=== PATIENT | female | born 1940 | race Caucasian/White ===

== ENCOUNTER 2020-12-10 19:58 | Emergency (ER) | payer MEDICARE ==
--- NOTE | 2020-12-10 20:10 | EDM.PDOC ---
<Abisai Cortez - Last Filed: 12/10/20 23:08> ED HPI GENERAL MEDICAL PROBLEM - General Chief Complaint: Lower Extremity Injury/Pain Stated Complaint: FELL Time Seen by Provider: 12/10/20 20:07 - History of Present Illness INITIAL COMMENTS - FREE TEXT/NARRATIVE: 11:09 PM: Signout received at 10 PM. Patient with a fracture of the right femoral neck. Patient reports that she was on the train throughout the course of the day with a fracture and pain. I have discussed with the patient the results and she is aware of the fracture. We have attempted to call multiple hospitals here in the [place] area and have been unsuccessful in obtaining a facility that will accept her secondary to the lack of bed availability secondary to the Covid pandemic. I have contacted [facility], [facility], [facility], [facility], [facility], [facility], [facility], and no hospitals have any availability to accept this patient. I have discussed these results with the patient and have recommended observation in the ED for pain management and nonweightbearing of her right hip until the morning so that we can contact hospitals again for transfer after discharge as of occurred. Patient is adamant about signing out AGAINST MEDICAL ADVICE. Patient does not wish to stay in the ED any further given her concern regarding exposure to Covid while in the emergency department as well as concerns regarding intoxicated patients who are here in the ED who has been cursing and increasing her anxiety and stress level. I have offered to place her in a room by herself however the patient is still adamant about wanting to be discharged. She reports that she has an appointment tomorrow at her orthopedic doctors office in [place] and she wants to be discharged from here so that she can have the procedure done in [place]. I have contacted the [facility] to see if they will accept the patient however they report that they do not have any orthopedic physician on- call and therefore will not be able to accept her in transfer. I have discussed with the patient and her granddaughter the risks of weightbearing and signing out AGAINST MEDICAL ADVICE at and at this time they have been able to verbalize their understanding of worsening fracture and increased morbidity if any weightbearing. Also concerned about potential fall when trying to ambulate at home. They both exhibit the capacity for medical decision making as well as competency to make decisions and at this time they both want to sign out AGAINST MEDICAL ADVICE despite the risks. They were able to verbalize back to me all risks and concerns that I have. Given that the patient has the capacity for medical decision-making and is competent to make her own medical decisions, I will respect her autonomy as a patient and allow her to sign out AGAINST MEDICAL ADVICE. Patient will be able to return to the ED at any time if she should change her mind or have difficulty with obtaining healthcare. Patient will be given a dose of Ultram and acetaminophen here in the ED and I will supply her with a prescription for Ultram to take for pain management until she is able to see her orthopedic doctor. - Related Data Allergies Allergy/AdvReac Type Severity Reaction Status Date / Time cat dander Allergy Rash Verified 12/11/20 16:42 MDT dog dander Allergy Other Verified 12/11/20 16:42 MDT glucosamine Allergy Hives Verified 12/11/20 16:42 MDT tetracycline Allergy Hives Verified 12/11/20 16:42 MDT milk AdvReac Abdominal Verified 12/11/20 16:42 MDT Pain Home Meds: Home Meds Albuterol Sulfate [Proventil Hfa] 2 puff INH Q4H PRN 04/08/16 [History] Ascorbic Acid [Vitamin C] 500 mg PO DAILY 04/08/16 [History] Clobetasol [Clobetasol 0.05%] 1 applic TOP BID PRN 04/08/16 [History] Cranberry 500 mg PO BID 04/08/16 [History] Cyanocobalamin (Vitamin B-12) [B-12] 500 mg PO BID 04/08/16 [History] Cyclobenzaprine HCl 10 mg PO TID PRN 04/08/16 [History] Flaxseed Oil [Flaxseed] 1,000 mg PO DAILY 04/08/16 [History] Lysine 500 mg PO DAILY PRN 04/08/16 [History] Metoprolol Succinate 50 mg PO BEDTIME 04/08/16 [History] Montelukast [Singulair] 10 mg PO BEDTIME 04/08/16 [History] Multivitamin [Multi-Vitamin Daily] 1 tab PO DAILY 04/08/16 [History] [place]-3 Fatty Acids [Fish Oil] 1,000 mg PO 12 04/08/16 [History] Potassium 99 mg PO BID 04/08/16 [History] Simvastatin [Zocor] 20 mg PO BEDTIME 04/08/16 [History] Ubidecarenone [Coq-10] 1 tab PO 12 04/09/16 [History] Cetirizine [ZyrTEC] 10 mg PO DAILY 12/11/20 [History] Cholecalciferol (Vitamin D3) [Vitamin D3] 1 tab PO DAILY 12/11/20 [History] Magnesium 1 tab PO DAILY 12/11/20 [History] Review of Systems - Review of Systems Review Of Systems: See Below Departure - Departure Time of Disposition: 23:14 Disposition: Against Medical Advice 07 Condition: Fair Clinical Impression: Fracture of neck of femur, hip, Compressed spine fracture - Discharge Information Instructions: Hip Fracture Referrals: Frances Neal NP [Primary Care Provider] - Forms: ED Department Discharge Additional Instructions: You were seen and evaluated in ER today secondary to a fall resulting in a fracture of your right hip. As we discussed, we recommended that you stay in the ED overnight so we can assist you with pain management and make sure that you are stable and not fall and injure self further. Tomorrow we can try the hospitals again to see if they have had any discharges that we can transfer for admission. At this time, you understand the risks of signing out AGAINST MEDICAL ADVICE including worsening of the fracture, falling while trying to ambulate with assistance. We will respect your autonomy and allow you to sign out AGAINST MEDICAL ADVICE. You will be given a prescription for tramadol to help you with pain. Please return to the ED if you change your mind or any new or concerning symptoms should occur. Please make sure that you do not place any weight or pressure on your right hip. Please go to your orthopedic doctor as soon as possible or to [facility] for assistance. The following information is given to patients seen in the emergency department who are being discharged to home. This information is to outline your options for follow-up care. We provide all patients seen in our emergency department with a follow-up referral. The need for follow-up, as well as the timing and circumstances, are variable depending upon the specifics of your emergency department visit. If you don't have a primary care physician on staff, we will provide you with a referral. We always advise you to contact your personal physician following an emergency department visit to inform them of the circumstance of the visit and for follow-up with them and/or the need for any referrals to a consulting sp ecialist. The emergency department will also refer you to a specialist when appropriate. This referral assures that you have the opportunity for follow-up care with a specialist. All of these measure are taken in an effort to provide you with optimal care, which includes your follow-up. Under all circumstances we always encourage you to contact your private physician who remains a resource for coordinating your care. When calling for follow-up care, please make the office aware that this follow-up is from your recent emergency room visit. If for any reason you are refused follow-up, please contact the Emergency Department at and asked to speak to the emergency department charge nurse. [facility] - Primary Care [address] [place] [id number] [place] [address] <Benja Payne E - Last Filed: 12/13/20 10:17> ED HPI GENERAL MEDICAL PROBLEM - General Source of Information: Reports: Patient History Limitations: Reports: No Limitations - History of Present Illness INITIAL COMMENTS - FREE TEXT/NARRATIVE: HISTORY AND PHYSICAL: History of present illness: Patient is a 80-year-old female who presents to the emergency room with complaints of right hip, knee and ankle pain post fall. She states she tripped while trying to get onto the train landing on her right hip. She had tramadol and Tylenol on her train ride which did seem to somewhat help the discomfort but due to her sitting for long period of time she feels "stiff". She denies hitting her head or having any loss of consciousness. Denies any urinary or fecal incontinence. Denies any numbness, tingling, saddle paresthesias. She s tates she has bilateral chronic ankle pain Review of systems: As per history of present illness and below otherwise all systems reviewed and negative. Past medical history: As per history of present illness and as reviewed below otherwise noncontributory. Surgical history: As per history of present illness and as reviewed below otherwise noncontributory. Social history: See social history for further information Family history: As per history of present illness and as reviewed below otherwise noncontributory. Physical exam: General: Well developed and well nourished. Alert and orientated x 3. Nontoxic in appearance and in no acute distress. Vital signs are stable and have been reviewed by me. Nursing notes were reviewed. HEENT: Atraumatic, normocephalic, pupils equal and reactive bilaterally, negative for conjunctival pallor or scleral icterus, mucous membranes moist, TMs normal bilaterally, throat clear, neck supple, nontender, trachea midline. No drooling or trismus noted. No meningeal signs. No hot potato voice noted. Lungs: Clear to auscultation bilaterally. No wheezes, rales, or rhonchi. Chest nontender. Normal work of breathing, no accessory muscles used. Heart: S1S2, regular rate and rhythm without overt murmur, gallops, or rubs. No JVD. No peripheral edema Abdomen: Soft, nondistended, nontender. Normoactive bowel sounds. Negative for masses or costovertebral tenderness. Pelvis: Stable nontender. C-spine/Back: No pinpoint vertebral tenderness upon palpation. No crepitus, step-offs or obvious deformities. Paraspinous muscular tenderness to the lumbar region bilaterally patient is ambulatory into the emergency room without difficulty or deficit. Able to rock back on heels and walk on toes. Denies any urinary or fecal incontinence. Denies any numbness, tingling or saddle paresthesia. No concerns of serious infection, fracture or cord compression, or cauda equina syndrome. Deep tendon reflexes brisk bilaterally. Skin: Intact, warm, dry. No lesions or rashes noted. Hematologic: No petechiae or purpra. Mucosa appropriate color and normal nail bed color and refill. Extremities: Atraumatic, moves all extremities per self without difficulty or deficits, negative for cords or calf pain. Neurovascular unremarkable. Neuro: Awake, alert, oriented. Cranial nerves II through XII unremarkable. Cerebellum unremarkable. Motor and sensory unremarkable throughout. Exam nonfocal. Psychiatric: Mood and affect are appropriate. Normal thought process. Answering questions appropriately. Notes: *This patient was seen and evaluated during the 2019 SARS-CoV-2 novel coronavirus pandemic period. Community viral transmission is ongoing at time of this encounter and the emergency department is operating under pandemic response procedures. Patient is a 80-year-old female who presents to the emergency room with complaints of right hip, knee and ankle pain after a fall. Patient was sitting on a train for several hours and states she is very stiff. Patient is ambulatory with assistance. Upon undressing her I do not see any bruising anywhere on the body. She is got strong pedal and pretibial pulses bilaterally. Mild tenderness with Ankle x-ray shows no acute osseous injuries or abnormalities are noted. Knee x- ray shows no acute osseous injuries or abnormalities are noted. CT of lumbar spine shows severe compression deformity of T12 is present with loss of 75 percent of the anterior vertebral body height. Moderate compression deformity is noted in the L1 vertebral body. No fracture lines are identified and these may be chronic. Correlation with physical exam for focal tenderness is recommended. Pelvic CT shows is an impacted fracture deformity of the right femoral head neck junction. Small sclerotic lesions are present in the ischial bones bilaterally measuring up to 5 mm and there is an 8 mm colonic lesion present within the sacrum. These may represent a giant bone islands. Further assessment with bone scan or MRI may be helpful if the patient has a history of primary malignancy. 2200: Patient signed out to Dr Cortez as it is the end of my shift. He is aware of image findings and will assume care of patient. Diagnostics: CBC, CMP, EKG, Lumbar/Pelvis CT, right knee/ankle x-ray Therapeutics: Morphine, Zofran (declined) Impression: Right femoral neck fracture T12 compression deformity Definitive disposition and diagnosis as appropriate pending reevaluation and review of above. Right Hip Pain Score (Numeric/FACES): 5 Past Medical History Cardiovascular History: Reports: High Cholesterol, Hypertension Respiratory History: Reports: Bronchitis, Recurrent Gastrointestinal History: Reports: GERD PEARL [employer] History: Reports: Musculoskeletal History: Reports: Other (See Below) Other Musculoskeletal History: Chronic knee and ankle pain Neurological History: Reports: Head Trauma, Other (See Below) Other Neuro History: Concussion X2 in 2002 Oncologic (Cancer) History: Reports: None Dermatologic History: Reports: Other (See Below) Other Dermatologic History: herpes zoster - Infectious Disease History Infectious Disease History: Reports: Herpes - Past Surgical History HEENT Surgical History: Reports: Cataract Surgery GI Surgical History: Reports: None Female Surgical History: Reports: Section Social & Family History - Family History Family Medical History: No Pertinent Family History - Caffeine Use Caffeine Use: Reports: None Review of Systems - Review of Systems Review Of Systems: Comprehensive ROS is negative, except as noted in HPI. ED EXAM, GENERAL - Physical Exam Exam: See Below (See dictation) Course - Vital Signs Last Recorded V/S: Last Vital Signs Temp 98.2 F 12/10/20 23:29 Pulse 82 12/10/20 23:29 Resp 18 12/10/20 23:29 BP 138/72 12/10/20 23:29 Pulse Ox 97 12/10/20 23:29 - Orders/Labs/Meds Meds: Medications Discontinued Medications Generic Name Dose Route Start Last Admin Trade Name Kyra PRN Reason Stop Dose Admin Acetaminophen 650 mg 12/10/20 23:07 12/10/20 23:16 Acetaminophen 325 Mg Tab PO 12/10/20 23:08 650 mg NOW ONE Administration Morphine Sulfate 2 mg 12/10/20 20:26 12/10/20 20:44 Morphine 2 Mg/Ml Syringe IVPUSH 12/10/20 20:27 Not Given ONETIME ONE Ondansetron HCl 4 mg 12/10/20 20:26 12/10/20 20:44 Ondansetron 4 Mg/2 Ml Sdv IVPUSH 12/10/20 20:27 Not Given ONETIME ONE Tramadol HCl 50 mg 12/10/20 23:07 12/10/20 23:15 Tramadol 50 Mg Tab PO 12/10/20 23:08 50 mg ONETIME ONE Administration
[2020-12-10] MEDS ORDERED: Morphine 2 MG/ML SYRINGE IVPUSH ONE (20:26)
[2020-12-10] MEDS ORDERED: Ondansetron 4 MG/2 ML SDV IVPUSH ONE (20:26)
--- NOTE | 2020-12-10 21:34 | CR ---
INDICATION: Fall, right sided knee pain TECHNIQUE: Knee radiograph 3 views right COMPARISON: None FINDINGS: Bone: No acute fractures or aggressive bone lesions are identified. Severe diffuse osteopenia is seen. 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 No significant knee effusion is seen. Soft tissue: Unremarkable. No radiopaque foreign bodies are seen. IMPRESSION: 1. No acute osseous injuries or abnormalities are noted. Dictated by Hernandez Johnson MD @ 12/10/2020 9:33:48 PM Dictated by: Hernandez Johnson MD @ 12/10/2020 21:33:52 (Electronically Signed)
--- NOTE | 2020-12-10 21:34 | CR ---
INDICATION: fall, right sided ankle pain TECHNIQUE: Ankle radiograph 3 views right COMPARISON: None FINDINGS: Bone: No acute fractures or aggressive bone lesions are identified. Moderate diffuse osteopenia is noted. Joint: The ankle mortise joint and the visualized hindfoot joints are unremarkable in appearance. No significant ankle effusion is seen. Soft tissue: The [place] fat pad and the Achilles` tendon is normal in appearance. No radiopaque foreign bodies are seen. IMPRESSION: 1. No acute osseous injuries or abnormalities are noted. Dictated by: Hernandez Johnson MD @ 12/10/2020 21:32:32 (Electronically Signed)
--- NOTE | 2020-12-10 21:43 | CT ---
INDICATION: Fall, right lower extremity lumbar spine pain, limited range of motion TECHNIQUE: CT lumbar spine without i.v. contrast. Coronal and sagittal reformats were obtained. COMPARISON: None FINDINGS: Alignment: Unremarkable. Bone: Severe compression deformity of T12 is present with loss of 75 percent of the anterior vertebral body height. Moderate compression deformity is noted in the L1 vertebral body. Disc: Severe degenerative disc narrowing with vacuum phenomenon is present at L4-5. Vacuum phenomenon with degenerative disc narrowing seen at L2-3 and L5-S1. Broad-based disc protrusions are present causing central canal stenosis at L3-4 and L4-5. Severe bilateral facet osteoarthritis is present at L3-4 with moderate bilateral facet osteoarthritis seen at L4-5. Soft tissue: There is a hypodense liver lesion present measuring 3.2 x 2.4 cm and incompletely assessed without intravenous contrast. Small sliding type gastric hiatal hernia (type IV) is present. IMPRESSION: 1. Severe compression deformity of T12 is present with loss of 75 percent of the anterior vertebral body height. Moderate compression deformity is noted in the L1 vertebral body. No fracture lines are identified and these may be chronic. Correlation with physical exam for focal tenderness is recommended. Dictated by Hernandez Johnson MD @ 12/10/2020 9:42:22 PM Please note that all CT scans at this facility use dose modulation, iterative reconstruction, and/or weight-based dosing when appropriate to reduce radiation dose to as low as reasonably achievable. Dictated by: Hernandez Johnson MD @ 12/10/2020 21:42:25 (Electronically Signed)
--- NOTE | 2020-12-10 21:54 | CT ---
INDICATION: Fall, right lower extremity pelvic pain, limited range of motion TECHNIQUE: CT pelvis without i.v. contrast. Coronal and sagittal reformats were obtained. COMPARISON: None FINDINGS: Bone: There is an impacted fracture deformity of the right femoral head neck junction. Small sclerotic lesions are present in the ischial bones bilaterally measuring up to 5 mm and there is an 8 mm colonic lesion present within the sacrum. Joint: Mild joint space narrowing of the hip joints are noted bilaterally. No significant hip effusion is seen. The visualized sacroiliac joints are unremarkable in appearance. The pubic symphysis is normal in appearance. Soft tissue: Unremarkable. No radiopaque foreign bodies are seen. IMPRESSIONS: 1. There is an impacted fracture deformity of the right femoral head neck junction. 2. Small sclerotic lesions are present in the ischial bones bilaterally measuring up to 5 mm and there is an 8 mm colonic lesion present within the sacrum. These may represent a giant bone islands. Further assessment with bone scan or MRI may be helpful if the patient has a history of primary malignancy. Dictated by Hernandez Johnson MD @ 12/10/2020 9:52:06 PM Please note that all CT scans at this facility use dose modulation, iterative reconstruction, and/or weight-based dosing when appropriate to reduce radiation dose to as low as reasonably achievable. Dictated by: Hernandez Johnson MD @ 12/10/2020 21:52:11 (Electronically Signed)
[2020-12-10 22:47] VITALS: PULSE 82
[2020-12-10] MEDS ORDERED: traMADol 50 MG Tab PO ONE (23:07)
[2020-12-10] MEDS ORDERED: Acetaminophen 325 MG Tab PO ONE (23:07)
[2020-12-10 23:35] VITALS: BP 138/72
--- NOTE | 2020-12-11 06:20 | PCM.EKG ---
#1 Interpretation EKG Interpretation Comments: EKG date December 10, 2020 8:36 PM EKG: As interpreted by ER physician: Dana: Nonspecific ST-T wave abnormalities Normal axis No evidence of ST elevation SC Normal sinus rhythm heart rate of 68
== END 2020-12-10 23:29 | disposition left against medical advice (07) ==
LOC: MW.ED 19:58
DX: S72.091A Other fracture of head and neck of right femur, initial encounter for closed fracture (principal); S22.080A Wedge compression fracture of T11-T12 vertebra, initial encounter for closed fracture; S32.010A Wedge compression fracture of first lumbar vertebra, initial encounter for closed fracture; E78.00 Pure hypercholesterolemia, unspecified; I10 Essential (primary) hypertension; K21.9 Gastro-esophageal reflux disease without esophagitis; Z91.09 Other allergy status, other than to drugs and biological substances; Z79.899 Other long term (current) drug therapy; Z91.011 Allergy to milk products; Z88.1 Allergy status to other antibiotic agents; W01.0XXA Fall on same level from slipping, tripping and stumbling without subsequent striking against object, initial encounter
CPT/HCPCS: 72131; 72192; 73562; 73610; 93005; 99284; A9270